=== PATIENT | male | born 1980 | race Caucasian/White ===

== ENCOUNTER 2016-10-19 15:38 | Emergency (ER) | payer SELFPAY ==
[~2016-10-19 15:38] MED LIST: IBUP-238 PO; TYLE3 PO; Z.0.NO CURRENT MEDS; [UNRECOGNIZED DRUG - CODE] PO
[2016-10-19 15:39] VITALS: BP 130/72; PULSE 114; RESP 20; TEMP 97.9; O2SAT 100
== END 2016-10-19 15:42 | disposition left against medical advice (07) ==
LOC: NED 15:38
DX: Z53.21 Procedure and treatment not carried out due to patient leaving prior to being seen by health care provider (principal)
CPT/HCPCS: 99281